=== PATIENT | female | born 1975 | race Caucasian/White ===

== ENCOUNTER 2017-03-26 02:52 | Observation (INO) | payer BC ==
--- NOTE | ~2017-03-26 | DS ---
Unit #: [id number] #: [id number] Patient: JETT ARMSTRONG [id number] [address] [address] [id number] I MR#: [id number] NAME: JETT ARMSTRONG ROOM: 216 Age: 41 Sex: F Admission Date: 03/26/2017 : 1975 Discharge Date: 03/27/2017 Attending Physician: Clare Kebede M.D. Referring Physician: Laverne Primary Care Physician Primary Care Physician: Sun Mccann M.D. DISCHARGE SUMMARY PRINCIPAL DIAGNOSES 1. Left-sided hydronephrosis secondary to number two. 2. Nephrolithiasis. 3. Questionable urinary tract infection with negative urine culture. Obtained after antibiotics. 4. Tobaccoism. 5. Hypokalemia. CONSULTANTS Dr. De, urology. PROCEDURES Cystoscopy and left ureteral stent placement on 03/26/2017. CLINICAL HISTORY/HOSPITAL COURSE Ms. Armstrong is a 41-year-old female who presented to the emergency department with left-sided renal colic. CT scan at an outlying facility revealed left-sided hydronephrosis and multiple stones present within the left renal pelvis. The patient was referred here for evaluation. Dr. De was consulted and the patient underwent left ureteral stent placement. Postoperatively she has done well. Urine obtained during the procedure has not revealed any infection. However, I will note that the patient has not had any leukocytosis nor has she had any fever. However, given she now has indwelling stent we are going to treat empirically with Keflex. The patient's other chronic conditions remain stable and she will be discharged home today. DISCHARGE CONDITION Stable. DISPOSITION Discharge to home. DISCHARGE 1. Keflex 500 mg p.o. t.i.d. for 2 weeks. 2. Oxycodone 5 mg p.o. q.6 h. p.r.n. pain, number given 15. 3. Flomax 0.4 mg daily. DISCHARGE INSTRUCTIONS 1. The patient is not to drive while taking pain medication. 2. She may return to work on 03/31/2017. Unit #: [id number] #: [id number] Patient: JETT ARMSTRONG DIET Regular. ACTIVITY Increase as tolerated. FOLLOWUP The patient will follow up with Dr. De in approximately 10 days in the office. She will have stent removal at that time. Dictated by... Clare Kebede M.D. BABS/bello TD: 03/28/2017 08:51 JOB #: [id number] DISCHARGE SUMMARY Page 1 of 1 X Clare Kebede MD X DISCHARGE SUMMARY
--- NOTE | ~2017-03-26 | CO ---
Unit #: [id number] #: [id number] Patient: JUDY ARMSTRONG [id number] [address] [place], [place] [address] [id number] I MR#: [id number] NAME: JUDY ARMSTRONG ROOM: 216 Age: 41 Sex: F Admission Date: 03/26/2017 : 1975 Attending Physician: Clare Kebede M.D. Primary Care Physician: Sun Mccann M.D. Consultation Date: 03/26/2017 CONSULTATION REPORT CHIEF COMPLAINT Left lower quadrant pain and urgency. HISTORY OF PRESENT ILLNESS Judy is a 41-year-old woman with multiple left ureteral stones and suspected UTI. The patient was first diagnosed with ureteral stone, she states, in November of this year. She has not seen a urologist. She denies fever or chills at home. Recent CT scan shows 1 cm left UVJ stone and a 5 mm mid ureteral stone per the report from the nursing staff. Patient informed of her options, risks, benefits and alternatives. PAST MEDICAL HISTORY 1. Kidney stones. 2. Uterine ablation. MEDICATIONS None. SOCIAL HISTORY Positive for smoking. FAMILY HISTORY Positive for kidney cancer. REVIEW OF SYSTEMS Negative for ten systems except for pelvic and vaginal pressure and urgency. PHYSICAL EXAMINATION VITAL SIGNS: Stable. She is afebrile. Alert and oriented, in no acute distress. Trachea is midline. EYES: Equal, reactive to light. PULMONARY EXAM: Benign. CARDIAC EXAM: Benign. ABDOMEN: Soft without rebound or guarding. Mild left side tenderness. EXAM: Deferred. EXTREMITIES: No clubbing, cyanosis or edema. NEURO: Cranial nerves II-XII intact. DIAGNOSTIC STUDIES LABORATORY: Urinalysis - positive for nitrites and leukocytes. White blood cell count was around 12,000. Creatinine I think was 1.2 to 1.3. Unit #: [id number] #: [id number] Patient: JUDY ARMSTRONG ASSESSMENT Ureteral stones, suspected urinary tract infection. I explained to her the risks, benefits and alternatives. I recommend that she undergo cystoscopy and stent placement with eventual treatment of her stones after we treat her for a UTI. I explained the possible risk of bleeding, infection, sepsis, up to and including . She consents to have the stent placed. She agrees to undergo eventual treatment of her stone. I answered all of her questions. Thank you for the referral. Dictated by... Brody De M.D. VANI/renetta TD: 03/26/2017 11:10 JOB #: [id number] CONSULTATION REPORT Page 1 of 1 X Brody De MD X CONSULTATION REPORT
--- NOTE | ~2017-03-26 | HP ---
Unit #: [id number] #: [id number] Patient: JETT ARMSTRONG [id number] [address] [place], [place] [address] [id number] I MR#: [id number] NAME: JETT ARMSTRONG ROOM: 216 Age: 41 Sex: F Admission Date: 03/26/2017 : 1975 Attending Physician: Sun Mccann M.D. Referring Physician: Laverne Primary Care Physician Primary Care Physician: Sun Mccann M.D. HISTORY AND PHYSICAL CHIEF COMPLAINT Renal colic and urinary tract infection. HISTORY This johann 41-year-old female, with history of kidney stones, was transferred from [facility] emergency department for renal colic and urinary tract infection. The patient states that she was well until two days prior to admission when she developed urinary frequency, urgency and dysuria despite Azo. This was associated with bladder spasms and hematuria along with left flank pain. No fevers, sweats or chills. She presented to [facility] emergency department and she was treated with IV fluids, Toradol, Zofran and Rocephin as she was noted to have significant pyuria. The patient was seen in the emergency department 11/29 for renal colic and was diagnosed at that time with kidney stones. She was told to follow up with urology. She required another ER visit in December. PAST MEDICAL HISTORY 1. Kidney stones requiring ER visits in November and December. 2. Endometrial ablation. ALLERGIES Penicillin, aspirin, codeine, hydrocodone, possibly Percocet. HOME MEDICATIONS Ibuprofen. FAMILY HISTORY Kidney stones and renal cell CA. SOCIAL HISTORY The patient lives with her boyfriend, smokes 1/3 pack per day of tobacco. Does not drink alcohol or use illicit drugs. REVIEW OF SYSTEMS Notable for left flank pain, urgency, frequency, dysuria, kidney stones, endometrial ablation, tobacco use. All other systems were reviewed and are negative. PHYSICAL EXAMINATION GENERAL APPEARANCE: Johann 41-year-old female, currently in no acute distress. VITAL SIGNS: Blood pressure 134/82, O2 saturation 96% on room air, pulse Unit #: [id number] #: [id number] Patient: JETT ARMSTRONG 108, temperature 97. HEENT: Eyes PERRLA. Extraocular muscles are intact. Pharynx is benign. NECK: Supple without adenopathy or thyromegaly. CHEST: Clear. BACK: Left CVA percussion tenderness. CARDIAC: Normal S1 and S2 without S3, S4 or murmur. ABDOMEN: Bowel sounds are present. Mild left sided abdominal tenderness without rebound or guarding. No hepatosplenomegaly or masses. Some tenderness over the suprapubic region. EXTREMITIES: Without clubbing, cyanosis or edema. Pedal pulses are present. NEUROLOGIC EXAM: The patient is awake, alert, alert. Cranial nerves are intact. Equal strength throughout. DIAGNOSTIC STUDIES LABORATORY: Hematocrit is 42.9, white blood count 12.4, normal platelet count. SMA-12 - alkaline phos 121, creatinine 1.2, normal calcium and lipase. IMAGING: CT scan - moderate hydronephrosis on the left with hydroureter secondary to an obstructing 5 mm stone in the left mid ureter. Probable additional aggregation of stones obstructing the left UVJ and an aggregate that measures up to about a centimeter. Likely benign cyst mid pole left kidney. ASSESSMENT 1. Renal colic with left ureteral stones and hydronephrosis. 2. Urinary tract infection. PLANS 1. IV fluids and supportive treatment. 2. Urology was called. They asked that medicine admit and they will consult in the morning. 3. SCDs for DVT prophylaxis. Dictated by Arnol Rader/renetta TD: 03/26/2017 06:19 JOB #: [id number] HISTORY AND PHYSICAL Page 1 of 1 X Sun Mccann MD X HISTORY AND PHYSICAL
--- NOTE | ~2017-03-26 | OR ---
Unit #: [id number] #: [id number] Patient: JETT ARMSTRONG [id number] [address] [address] [id number] I MR#: [id number] NAME: JETT ARMSTRONG ROOM: 216 Date of Procedure: 03/26/2017 Admission Date: 03/26/2017 Surgeon: Brody De M.D. : 1975 Attending Physician: Clare Kebede M.D. Primary Care Physician: Sun Mccann M.D. OPERATIVE REPORT PREOPERATIVE DIAGNOSIS Left ureteral stones, possibly urinary tract infection. POSTOPERATIVE DIAGNOSIS Left ureteral stones, possibly urinary tract infection. PROCEDURES PERFORMED Cystoscopy, left stent placement. DESCRIPTION OF PROCEDURE After informed consent, she was taken to the cystoscopy suite, placed in general anesthetic, positioned lithotomy. The vagina and perineum were prepped and draped in the usual sterile fashion. Cystoscopy showed a normal urethra and bladder. There were no tumors, no stones, or diverticula. The entire bladder was inspected. At her left ureteral orifice, there were stones visible just inside the orifice. A Sensor wire was placed under fluoroscopy into the left collecting system. A 5 x 24 stent was placed with the tether removed. The stone in the mid ureter was more visible than the UVJ stones. That stone was just above the pelvic brim. The stent was placed. There was good coil in the bladder and the collecting system. Urine specimen was obtained for culture. There was no purulent material coming through the stent portals. The patient will be returned to the floor and after discharge, she will be scheduled for treatment of her stone. Dictated by... Arnol Krishnamurthy/antoniol TD: 03/26/2017 23:38 JOB #: [id number] Unit #: [id number] #: [id number] Patient: JETT ARMSTRONG OPERATIVE REPORT Page 1 of 1 X Brody De MD X PROCEDURE OPERATIVE NOTE
[2017-03-26 12:07] LABS: BASOPHIL# 0.1 X10e3 (0-0.3); BASOPHIL% 0.7 % (0-2.5); EOSINOPHIL# 0.2 X10e3 (0-0.7); EOSINOPHIL% 2.2 % (0.0-7.0); HEMATOCRIT 39.6 % (35.0-45.0); HEMOGLOBIN 12.8 gm/dL (12.0-16.0); LYMPHOCYTE# 2.1 X10e3 (1.0-3.5); LYMPHOCYTE% 28.4 % (17.0-45.0); MEAN CELL VOLUME 92.6 FL (83-96); MEAN CORPUSCULAR HEMOGLOBIN 29.9 PG (28-34); MEAN CORPUSCULAR HGB CONC 32.3 g/dL (30-36); MEAN PLATELET VOLUME 7.5 FL (6.5-11.5); MONOCYTE# 0.5 X10e3 (0-1.0); MONOCYTE% 6.8 % (3.0-12.0); NEUTROPHIL# 4.6 X10e3 (1.5-7.1); NEUTROPHIL% 61.9 % (40-75); PLATELET COUNT 274 X10e3 (140-420); RED BLOOD COUNT 4.28 X10e (3.90-5.30); RED CELL DISTRIBUTION WIDTH 13.9 % (11.0-15.5); WHITE BLOOD COUNT 7.4 X10e3 (4.0-10.5)
[2017-03-26 12:10] LABS: DIFF IND NO
[2017-03-26 12:29] LABS: BUN/CREATININE RATIO 12.5; CALCIUM SERUM 8.1 mg/dL (8.4-10.2); CREATININE SERUM 0.8 mg/dL (0.6-1.4); POTASSIUM 3.3 mmol/L (3.5-5.1)
[2017-03-27 06:33] LABS: HEMATOCRIT 38.2 % (35.0-45.0); HEMOGLOBIN 12.2 gm/dL (12.0-16.0); MEAN CORPUSCULAR HEMOGLOBIN 29.8 PG (28-34); MEAN PLATELET VOLUME 7.9 FL (6.5-11.5); RED BLOOD COUNT 4.1 X10e (3.90-5.30); WHITE BLOOD COUNT 8.2 X10e3 (4.0-10.5)
[2017-03-27 07:03] LABS: CALCIUM SERUM 8.4 mg/dL (8.4-10.2); CREATININE SERUM 0.8 mg/dL (0.6-1.4); MAGNESIUM 1.8 mg/dL (1.6-3.0); POTASSIUM 4.6 mmol/L (3.5-5.1)
[2017-03-27] MEDS ORDERED: FLOMAX0.4 M1 PO (10:06)
[2017-03-27] MEDS ORDERED: KEFLEX500 M1 PO (10:06)
[2017-03-27] MEDS ORDERED: ROXICODONE5 MG PO (10:07)
== END 2017-03-27 10:43 | disposition home or self-care (01) | DRG 694 ==
LOC: CED 02:52 → C2A 03:02 → CED 03:02 → C2A 04:02 → CED 04:02 → C2A 04:20
PROVIDERS: Internal Medicine
DX: N13.2 Hydronephrosis with renal and ureteral calculous obstruction (principal); N39.0 Urinary tract infection, site not specified; F17.200 Nicotine dependence, unspecified, uncomplicated; Z87.442 Personal history of urinary calculi; Z85.528 Personal history of other malignant neoplasm of kidney; Z88.6 Allergy status to analgesic agent; Z88.5 Allergy status to narcotic agent; Z80.51 Family history of malignant neoplasm of kidney; Z84.2 Family history of other diseases of the genitourinary system
CPT/HCPCS: 80048; 83735; 84703; 85025; 85027; 87086; 96374; 96375; 96376; C2617; G0378; J0696; J1200; J1885; J2250; J2270; J2370; J2405; J3010

== ENCOUNTER → 2017-04-02 | Day surgery (SDC) | payer BC ==
[~2017-04-02] MED LIST: FLOMAX0.4 M1 PO; KEFLEX500 M1 PO; ROXICODONE5 MG PO
--- NOTE | ~2017-04-02 | OR ---
Unit #: [id number] #: [id number] Patient: JETT ARMSTRONG [id number] [address] [place], [place] [address] [id number] O MR#: [id number] NAME: JETT ARMSTRONG ROOM: Date of Procedure: 04/02/2017 Admission Date: 04/02/2017 Surgeon: Brody De M.D. : 1975 Attending Physician: Brody De M.D. Primary Care Physician: Sun Mccann M.D. OPERATIVE REPORT PREOPERATIVE DIAGNOSIS Left ureteral stone. POSTOPERATIVE DIAGNOSIS Left ureteral stone. PROCEDURES PERFORMED Cystoscopy, left ureteroscopy, laser lithotripsy, basket extraction, and stent replacement. DESCRIPTION OF PROCEDURE After informed consent, she was taken to the operating room, placed under general anesthetic, positioned in lithotomy. Her vagina and perineum were prepped and draped in usual sterile fashion. Cystoscopy was performed revealing a normal urethra and bladder. The entire bladder was inspected. There were no tumors or stones visible. She did have a stent exiting the left orifice. This was pulled out under fluoroscopy to the meatus with a grasper. The stent was then removed after a wire was placed inside the stent and the wire was left in place. Rigid ureteroscopy was performed. She had stone burden at the UVJ, mid ureter, and proximal ureter. It ranged in size from 5 mm up to over a centimeter. Using a holmium laser, each stone burden was lithotripsied, broken up into smaller pieces. A basket was used and the larger fragments were removed. I looked along the entire course of the ureter. She also had some lower pole stones on that side. These stones I did not treat. She could benefit from outpatient shockwave lithotripsy for the right and left, she has stones on both sides. A new stent was placed. After completing the procedure, a 5 x 24 stent was placed under fluoroscopy, but tether was removed. She will then return to the office as an outpatient for stent removal. She tolerated the procedure well. Dictated by... Arnol KrishnamurthyB/modl TD: 04/03/2017 03:54 JOB #: [id number] Unit #: [id number] #: [id number] Patient: JETT ARMSTRONG OPERATIVE REPORT Page 1 of 1 X Brody De MD PROCEDURE OPERATIVE NOTE
[2017-04-02 09:43] LABS: BASOPHIL# 0.1 X10e3 (0-0.3); BASOPHIL% 1.2 % (0-2.5); EOSINOPHIL# 0.3 X10e3 (0-0.7); EOSINOPHIL% 2.7 % (0.0-7.0); HEMATOCRIT 39.4 % (35.0-45.0); HEMOGLOBIN 13.4 gm/dL (12.0-16.0); LYMPHOCYTE# 2.5 X10e3 (1.0-3.5); LYMPHOCYTE% 22.7 % (17.0-45.0); MEAN CELL VOLUME 90.5 FL (83-96); MEAN CORPUSCULAR HEMOGLOBIN 30.7 PG (28-34); MEAN CORPUSCULAR HGB CONC 33.9 g/dL (30-36); MEAN PLATELET VOLUME 7.2 FL (6.5-11.5); MONOCYTE# 0.8 X10e3 (0-1.0); MONOCYTE% 7.4 % (3.0-12.0); NEUTROPHIL# 7.1 X10e3 (1.5-7.1); PLATELET COUNT 393 X10e3 (140-420); RED BLOOD COUNT 4.36 X10e (3.90-5.30); RED CELL DISTRIBUTION WIDTH 14.1 % (11.0-15.5); WHITE BLOOD COUNT 10.8 X10e3 (4.0-10.5)
[2017-04-02 09:48] LABS: DIFF IND NO
== END | disposition home or self-care (01) ==
LOC: CSUR 08:56
PROVIDERS: Urology
DX: N20.1 Calculus of ureter (principal); N20.0 Calculus of kidney; K21.9 Gastro-esophageal reflux disease without esophagitis; F17.210 Nicotine dependence, cigarettes, uncomplicated; Z88.0 Allergy status to penicillin; Z88.6 Allergy status to analgesic agent; Z88.8 Allergy status to other drugs, medicaments and biological substances; Z79.2 Long term (current) use of antibiotics; Z79.891 Long term (current) use of opiate analgesic; Z98.818 Other dental procedure status; Z98.890 Other specified postprocedural states
CPT/HCPCS: 82365; 84703; 85025; 88300; C1758; C2617; J1100; J1885; J1956; J2250; J2405; J2795; J3010

== ENCOUNTER → 2017-05-05 | Outpatient (CLI) | payer BC ==
--- NOTE | ~2017-05-05 | US77 ---
[facility] A Service of [facility] RADIOLOGY TEXT RESULTS PATIENT: JETT ARMSTRONG LOCATION: [facility] : [birth year] UNIT #: [id number] AGE: [address]: Brody De MD SEX: F ORDER DR: [id number] [facility] [address] [place], [place] [address] [id number] O MR#: [id number] Acc #: [id number] NAME: JETT ARMSTRONG : 1975 SEX: F STUDY DATE/TIME: 05/05/2017 12:29 UNIT: [facility] ROOM: STUDY DESCRIPTION: US Kidney Bilateral Complete Attending Physician: Brody De M.D. Referring Physician: Brody De M.D. Ordering Physician: Brody De M.D. Primary Care Physician: Primary Care Physician No MEDICAL IMAGING REPORT This report is preliminary unless electronic signature is present EXAM Renal ultrasound bilateral, 05/05/2017 INDICATION 41-year-old female with history of renal stones. Left flank pain. Stent removal April [address] 03/25/2017 demonstrated left-sided hydronephrosis and multiple ureteral stents. TECHNIQUE Sonographic imaging of the kidneys was performed bilaterally. Correlation is made with CT 03/25/2017 FINDINGS The right kidney measures 9 cm long axis and the left measures 8.9 cm. There is a tiny nonobstructing stone in the [id number]-mp-rbjji pole left kidney measuring 4-5 mm. No hydronephrosis of either kidney. Bladder not well distended but unremarkable otherwise. IMPRESSION 1. No hydronephrosis of either kidney. 2. Nonobstructing left renal stone. 3. Decompressed bladder. Dictated by... Ayad Ruiz M.D. THIS IS AN ELECTRONICALLY VERIFIED REPORT Ayad Ruiz M.D. at 05/06/2017 7:09 AM DON/javid TD: 05/05/2017 21:09 [facility] A Service of [facility] RADIOLOGY TEXT RESULTS PATIENT: JETT ARMSTRONG LOCATION: [facility] : [birth year] UNIT #: [id number] AGE: [address]: Brody De MD SEX: F ORDER DR: JOB #: [id number] MEDICAL IMAGING REPORT Page 1 of 1 COPY
== END | disposition home or self-care (01) ==
LOC: CWCC 12:06
DX: N20.0 Calculus of kidney (principal); N32.89 Other specified disorders of bladder
CPT/HCPCS: 76770

== ENCOUNTER → 2017-05-12 | Outpatient (CLI) | payer BC ==
--- NOTE | ~2017-05-12 | CR7 ---
[facility] A Service of [facility] RADIOLOGY TEXT RESULTS PATIENT: JETT ARMSTRONG LOCATION: [facility] : 79 UNIT #: [id number] AGE: [address]: Brody De MD SEX: F ORDER DR: [id number] [place] [id number] [facility]. [place], [place] [address] [id number] O MR#: [id number] Acc #: [id number] NAME: JETT ARMSTRONG : 1975 SEX: F STUDY DATE/TIME: 05/12/2017 14:42 UNIT: [facility] ROOM: STUDY DESCRIPTION: CR Abdomen Single AP View Attending Physician: Brody De M.D. Referring Physician: Brody De M.D. Ordering Physician: Brody De M.D. Primary Care Physician: Primary Care Physician No MEDICAL IMAGING REPORT This report is preliminary unless electronic signature is present EXAM Frontal abdomen 05/12/2017 INDICATIONS 41-year-old female with a history of kidney stones. Symptoms 8 months on the left. TECHNIQUE Frontal abdomen was performed. Correlation is made with CT 03/25/2017 FINDINGS Both renal shadows are obscured by air and fecal material. There is a 6 mm stone at the level of the mid pole left kidney. There is a vascular calcification in the right in the pelvis. No other suspicious calcification identified. There is a calcification near the upper pole right kidney likely localizing to the liver based upon the prior CT. IMPRESSION 1. 6 mm stone associated with the left kidney. Probable hepatic calcifications simulating an upper pole renal stone on the right. 2. Probable vascular calcification in the right hemipelvis. Dictated by... Ayad Ruiz M.D. THIS IS AN ELECTRONICALLY VERIFIED REPORT Ayad Ruiz M.D. at 05/14/2017 6:14 AM Yolanda TD: 05/13/2017 07:16 JOB #: [id number] [facility] A Service of [facility] RADIOLOGY TEXT RESULTS PATIENT: JETT ARMSTRONG LOCATION: [facility] #: [id number] : [birth year] UNIT #: [id number] AGE: [address]: Brody De MD SEX: F ORDER DR: MEDICAL IMAGING REPORT Page 1 of 1 COPY
== END | disposition home or self-care (01) ==
LOC: CRAD 14:25
DX: N20.0 Calculus of kidney (principal)
CPT/HCPCS: 74000